=== PATIENT | female | born 1995 | race African-American/Black ===

== ENCOUNTER 2018-06-19 12:50 | Emergency (ER) | payer BC ==
[~2018-06-19] VITALS: Ht 198.1 cm; Wt 53.0 kg
[2018-06-19] MEDS ORDERED: ASPIRIN 81MG TABLET PO ONE (18:00)
[2018-06-19 18:27] LABS: BASOPHILS % 0.5 % (0.0-2.0); EOSINOPHILS % 0.2 % (0.0-5.0); HEMATOCRIT. 39.6 % (36.0-48.0); HEMOGLOBIN. 13.1 g/dL (12.0-16.0); LYMPHOCYTES % 14.6 % (20.0-50.0); MEAN CORPUSCULAR HEMOGLOBIN 28.3 pg (28.0-32.0); MEAN CORPUSCULAR VOLUME 85.2 fL (81.0-99.0); MEAN PLATELET VOLUME 7.8 fl (7.4-10.4); MONOCYTES % 6.9 % (2.0-8.0); NEUTROPHILS % 77.8 % (40.0-76.0); PLATELET 371 x1000/uL (130-400); RED BLOOD CELL COUNT 4.64 mill/uL (4.2-5.4); RED CELL DISTRIBUTION WIDTH 16.2 % (11.6-14.6)
[2018-06-19 18:36] LABS: HCG SCREEN NEGATIVE
[2018-06-19 18:40] LABS: CHLORIDE 103 mEq/L (98-107)
[2018-06-19] MEDS ORDERED: FAMOTIDINE 20MG TABLET PO ONE (19:00)
[2018-06-19] MEDS ORDERED: ONDANSETRON 4MG ODT PO ONE (19:00)
[2018-06-19 21:44] VITALS: BP 118/80
[2018-06-19] MEDS ORDERED: IOHEXOL-350 100 ML BOTTLE ONE (22:41)
== END 2018-06-19 21:50 | disposition home or self-care (01) ==
LOC: ER 12:50
DX: R10.13 Epigastric pain (principal); R07.89 Other chest pain; K21.9 Gastro-esophageal reflux disease without esophagitis; J45.909 Unspecified asthma, uncomplicated; Z88.6 Allergy status to analgesic agent
CPT/HCPCS: 36415; 71045; 71275; 80053; 81025; 83880; 84484; 84703; 85025; 85379; 93005; 99284; Q0162; Q9967